=== PATIENT | female | born 1945 | race Caucasian/White ===

== ENCOUNTER 2025-10-07 14:47 | Outpatient (CLI) | payer OTHER, SELFPAY ==
--- NOTE | ~2025-10-07 | XR_ITS ---
EXAMINATION: XR chest 2V, 10/07/2025 14:58 [employer]IST HISTORY: Acute cough COMPARISON: No comparisons available. Technique: 2 views obtained. Findings: Moderate pulmonary venous congestion. Postsurgical changes left lung. No pneumothorax. Moderate cardiomegaly. Mediastinal and hilar contours are within normal limits. Post sternotomy. Impression: CHF Reviewed, dictated and finalized at location P. [employer] SPECIALIST Impression: CHF
== END 2025-10-07 14:48 | disposition home or self-care (01) ==
LOC: MICIMG 14:54
PROVIDERS: PCP Nurse Practitioner; Visit Provider Nurse Practitioner
DX: R05.1 Acute cough (principal); J44.1 Chronic obstructive pulmonary disease with (acute) exacerbation; I50.9 Heart failure, unspecified
CPT/HCPCS: 71046